=== PATIENT | male | born 1995 | race Caucasian/White ===

== ENCOUNTER 2018-03-10 08:36 | Emergency (ER) | payer OTHER ==
[~2018-03-10] VITALS: Ht 170.2 cm; Wt 68.0 kg
[~2018-03-10 08:36] MED LIST: ZITHROMAX500 MG PO
[2018-03-10 08:41] VITALS: Ht 170.2 cm; Wt 68.0 kg
[2018-03-10 09:00] VITALS: BP 158/79
== END 2018-03-10 09:00 | disposition home or self-care (01) ==
LOC: ED 08:36
DX: S00.462A Insect bite (nonvenomous) of left ear, initial encounter (principal); Z88.0 Allergy status to penicillin; W57.XXXA Bitten or stung by nonvenomous insect and other nonvenomous arthropods, initial encounter; Y93.89 Activity, other specified; Y92.89 Other specified places as the place of occurrence of the external cause; Y99.8 Other external cause status

== ENCOUNTER 2018-07-20 17:34 | Emergency (ER) | payer OTHER ==
[~2018-07-20] VITALS: Ht 167.6 cm; Wt 67.3 kg
[2018-07-20 17:40] VITALS: Ht 167.6 cm; Wt 67.3 kg
[2018-07-20 20:03] VITALS: BP 133/80
== END 2018-07-20 20:03 | disposition home or self-care (01) ==
LOC: ED 17:34
DX: L03.012 Cellulitis of left finger (principal); Z88.0 Allergy status to penicillin